=== PATIENT | male | born 1975 | race Caucasian/White ===

== ENCOUNTER 2017-07-21 18:15 | Emergency (ER) | payer MEDICAID ==
[~2017-07-21] VITALS: Ht 165.1 cm; Wt 93.4 kg
[2017-07-21 19:14] VITALS: BP 132/88
--- NOTE | 2017-07-21 19:30 | NUR ---
PT TO BED 11
[2017-07-21] MEDS ORDERED: FLUORESCEIN OPTH STRIP 1 MG ONE (20:05)
[2017-07-21 20:29] LABS: BASOPHILS # (AUTO) 0.2 K/uL (0.00-0.22); EOSINOPHILS # (AUTO) 0.3 K/uL (0-0.4); HEMATOCRIT 50.9 % (36-52); HEMOGLOBIN 16.9 g/dL (12.0-18.0); MEAN CORPUSCULAR HEMOGLOBIN 30 pg (27-31); MEAN CORPUSCULAR HGB CONC 33 g/dL (33-37); MEAN CORPUSCULAR VOLUME 89 fL (80-94); MONOCYTES # (AUTO) 0.4 K/uL (0.8-1.0); PLATELET COUNT (AUTO) 334 K/uL (140-450); RED CELL DISTRIBUTION WIDTH 13.3 % (11.6-13.7); WHITE BLOOD COUNT (AUTO) 7.8 K/uL (4.8-10.8)
--- NOTE | 2017-07-21 20:30 | NUR ---
PT C/O VISION CHANGE, TINGLING TO ARMS, CHILLS, NAUSEA, COUGH, RASH. PT HAS HAD GENERALIZED RASH SINCE "SUMMER TIME" DARKENED BROWN SPOTS NOTED TO ABD, CHEST, AND ARMS. C/O NAUSEA, ABD ROUND, SOFT, NONTENDER ACTIVE BS X4. PT HAS REDDENED SCLERA, AND RT EYE HAS "CUP FOR DRAINAGE" D/T GLAUCOMA. PERRL. PT AA&OX4.
[2017-07-21 20:47] LABS: PROTHROMBIN TIME 10.3 secs (10.8-13.4)
[2017-07-21] MEDS ORDERED: ACETAMINOPHEN EXTRA STRENGTH 500 MG TAB PO ONE (20:55)
--- NOTE | 2017-07-21 20:59 | NUR ---
VISUAL ACUITY ASSESSED L: 20/20 R: 20/200 B: 20/20
[2017-07-21 21:04] LABS: CARBON DIOXIDE 28.1 mmol/L (21-32); CREATININE 1.2 mg/dL (0.7-1.3); POTASSIUM 4.1 mmol/L (3.5-5.1); TOTAL BILIRUBIN 0.3 mg/dL (0.0-1.0)
[2017-07-21 21:05] LABS: ALBUMIN 4.2 g/dL (3.4-5.0); MAGNESIUM 2.1 mg/dL (1.8-2.4); THYROID STIMULATING HORMONE 1.69 uIU/mL (0.34-3.74)
--- NOTE | 2017-07-21 22:57 | NUR ---
Patient discharged with v/s stable. Written and verbal after care instructions given and explained. Patient alert, oriented and verbalized understanding of instructions. Ambulatory with steady gait. All questions addressed prior to discharge. ID band removed. Patient advised to follow up with PMD. Rx of brimonidine TARTRATE 0.2% given. Patient educated on indication of medication including possible reaction and side effects. Opportunity to ask questions provided and answered.
[2017-07-21 22:58] VITALS: BP 126/81
== END 2017-07-21 22:57 | disposition home or self-care (01) ==
LOC: MED 18:15
DX: H40.9 Unspecified glaucoma (principal); F12.10 Cannabis abuse, uncomplicated
CPT/HCPCS: 36415; 70450; 80053; 82948; 83735; 84443; 85025; 85610; 85730; 87804; 93005; 99285

== ENCOUNTER 2017-07-25 08:11 | Emergency (ER) | payer MEDICAID ==
[~2017-07-25] VITALS: Ht 165.1 cm; Wt 93.4 kg
[2017-07-25 08:31] VITALS: BP 127/74
--- NOTE | 2017-07-25 08:35 | NUR ---
PT AA&OX4, VSS AT THIS TIME; PT TO LOBBY AWAITING OPEN BED.
--- NOTE | 2017-07-25 10:37 | NUR ---
PT PLACED IN OVERFLOW 2.
[2017-07-25 12:16] VITALS: BP 127/74
--- NOTE | 2017-07-25 12:16 | NUR ---
Patient discharged with v/s stable. Written and verbal after care instructions given and explained. Patient alert, oriented and verbalized understanding of instructions. Ambulatory with steady gait. All questions addressed prior to discharge. ID band removed. Patient advised to follow up with PMD. Rx of PROMETHAZINE WITH CODEINE given. Patient educated on indication of medication including possible reaction and side effects. Opportunity to ask questions provided and answered.
== END 2017-07-25 12:16 | disposition home or self-care (01) ==
LOC: MED 08:11
DX: J06.9 Acute upper respiratory infection, unspecified (principal)
CPT/HCPCS: 71045; 99283